=== PATIENT | male | born 1970 | race Caucasian/White ===

== ENCOUNTER 2019-01-29 19:20 | Emergency (ER) | payer MEDICAID ==
[~2019-01-29] VITALS: Ht 182.9 cm; Wt 65.8 kg
[2019-01-29 19:38] VITALS: Ht 182.9 cm; Wt 65.8 kg
[2019-01-29 20:43] LABS: PLATELET COUNT 221 x10^3mcL (130-400); RED CELL DISTRIBUTION WIDTH 13.7 % (11.5-14.5)
[2019-01-29 20:45] LABS: BASOPHIL % 0 % (0-2)
[2019-01-29 20:51] LABS: CALCIUM 8.7 mg/dL (8.5-10.1); CARBON DIOXIDE 28.4 mmol/L (21-32); CHLORIDE SERUM 101 mmol/L (98-107); CREATININE SERUM 0.8 mg/dL (0.7-1.3); GFR1 > 60 mL/min; GLUCOSE SERUM 104 mg/dL (74-106); POTASSIUM SERUM 3.7 mmol/L (3.5-5.1); SODIUM SERUM 137 mmol/L (136-145)
[2019-01-29 20:56] LABS: ALKALINE PHOSPHATASE 79 U/L (46-116); ALT/SGPT 15 U/L (16-63); AST/SGOT 18 U/L (15-37); BILIRUBIN TOTAL 0.4 mg/dL (0.20-1.00); TOTAL PROTEIN, SERUM 6.6 g/dL (6.4-8.2)
[2019-01-29 20:57] LABS: ALBUMIN 3.2 g/dL (3.4-5.0)
[2019-01-29 22:51] LABS: microscopic required? NO
[2019-01-29 23:30] LABS: UA SPECIFIC GRAVITY 1.015 (1.005-1.035)
[2019-01-29 23:31] LABS: urine erythrocyte NEGATIVE (NEGATIVE)
[2019-01-30 01:42] VITALS: BP 108/64
== END 2019-01-30 01:43 | disposition short-term general hospital (02) ==
LOC: ED 19:20
PROVIDERS: Emergency Medicine
DX: G93.89 Other specified disorders of brain (principal)
CPT/HCPCS: J1100; J1200; J2765; J7030; Q9967